=== PATIENT | female | born 1990 | race Caucasian/White ===

== ENCOUNTER 2023-05-09 13:40 | Outpatient (OUT) | payer MEDICAID, SELFPAY ==
[2023-05-09 14:20] LABS: HCG Quantitative <1 mIU/mL
== END 2023-05-09 13:41 | disposition home or self-care (01) ==
LOC: LAB 13:43
PROVIDERS: Visit Provider Obstetrics & Gynecology
DX: N92.6 Irregular menstruation, unspecified (principal)
CPT/HCPCS: 36415; 84702

== ENCOUNTER 2023-11-28 19:53 | Outpatient (REF) | payer MEDICAID, SELFPAY | END 2023-11-28 19:54 | disposition home or self-care (01) | LOC: LAB 19:53 | PROVIDERS: Visit Provider Obstetrics & Gynecology | DX: Z01.419 Encounter for gynecological examination (general) (routine) without abnormal findings (principal) | CPT/HCPCS: 87624; G0145 ==

== ENCOUNTER 2024-11-28 12:26 | Outpatient (REF) | payer MEDICAID, SELFPAY ==
[2024-12-03 19:08] LABS: Age Gdln ACOG Testing Note (.); HPV Aptima Negative (Negative); IGP, Aptima HPV, rfx 16/18,45 Note (.)
== END 2024-11-28 12:27 | disposition home or self-care (01) ==
LOC: LAB 12:26
PROVIDERS: Visit Provider Obstetrics & Gynecology
DX: Z01.419 Encounter for gynecological examination (general) (routine) without abnormal findings (principal)
CPT/HCPCS: 87624; 88175